=== PATIENT | female | born 1980 | race Two or more races ===

== ENCOUNTER 2022-12-19 04:39 | Inpatient (IN) | payer MEDICAID ==
[2022-12-19] VITALS (7 sets, daily range): BP systolic 96–161; BP diastolic 64–108; PULSE 70–82; RESP 14–24; TEMP 97.4–98.2
[~2022-12-19] VITALS: Ht 157.5 cm; Wt 59.9 kg
[2022-12-19 06:20] LABS: BASOPHILS % 0.4 % (0.0-2.0); EOSINOPHILS % 7.5 % (0.0-5.0); HEMATOCRIT. 41.5 % (36.0-48.0); LYMPHOCYTES % 32.8 % (20.0-50.0); MEAN CORPUSCULAR HEMOGLOBIN 28.2 pg (28.0-32.0); MEAN CORPUSCULAR HGB CONC 33.8 g/dL (31.0-37.0); MEAN CORPUSCULAR VOLUME 83.4 fL (81.0-99.0); MEAN PLATELET VOLUME 9.3 fl (7.4-10.4); MONOCYTES % 7.3 % (2.0-8.0); PLATELET 172 x1000/uL (130-400); RED BLOOD CELL COUNT 4.97 mill/uL (4.2-5.4); RED CELL DISTRIBUTION WIDTH 13.9 % (11.6-14.6); WHITE BLOOD COUNT 5.3 x1000/uL (4.5-11.0)
[2022-12-19 07:39] LABS: CHLORIDE 113 mEq/L (98-107); INDEX HEMOLYSI 1 (1-3); INDEX ICTERIC 1 (1-4); INDEX LIPEMIC 1 (1-3); SODIUM 139 mEq/L (136-145)
[2022-12-19 07:48] LABS: ALANINE AMINOTRANSFERASE 12 IU/L (13-61); ASPARTATE AMINOTRANSFERASE 11 IU/L (15-37); BILIRUBIN TOTAL 0.3 mg/dL (0.1-1.0); CALCIUM 8.4 mg/dL (8.5-10.1); CARBON DIOXIDE 17 mEq/L (21-32); CREATININE 1.9 mg/dL (0.6-1.3); GLUCOSE 248 mg/dL (70-105); PROTEIN TOTAL 6.9 g/dL (6.0-8.3); UREA NITROGEN BLOOD 30 mg/dL (7-21)
[2022-12-19 07:56] LABS: POTASSIUM 2.8 mEq/L (3.5-5.1)
[2022-12-19 08:00] LABS: TROPONIN I HIGH SENSITIVITY 147 ng/L (<54)
[2022-12-19] MEDS ORDERED: POTASSIUM CHLORIDE 20MEQ/PACKET PO ONE (08:45)
[2022-12-19] MEDS ORDERED: ENOXAPARIN 60MG/0.6ML SYR SUBCUT ONE (08:45)
[2022-12-19] MEDS ORDERED: GUAIFENESIN 200MG/10ML SUGAR FREE UDC PO PRN (10:45)
[2022-12-19] MEDS ORDERED: MAGNESIUM/ALUMINUM HYDROXIDE/SIMETHICONE 30ML UDC PO PRN (10:45)
[2022-12-19] MEDS ORDERED: DOCUSATE SODIUM 100MG CAPSULE PO PRN (10:45)
[2022-12-19] MEDS ORDERED: CLONIDINE 0.1MG TABLET PO PRN (10:45)
[2022-12-19] MEDS ORDERED: ONDANSETRON HCL 4MG/2ML INJ IV PRN (10:45)
[2022-12-19] MEDS ORDERED: ACETAMINOPHEN 325MG TABLET PO PRN ×2 (10:45)
[2022-12-19] MEDS ORDERED: IPRATROPIUM/ALBUTEROL 0.5-3(2.5)MG/3ML NEB HHN PRN (10:45)
[2022-12-19] MEDS ORDERED: HYDROCODONE/ACETAMINOPHEN 5/325MG TABLET PO PRN (10:45)
[2022-12-19] MEDS ORDERED: AMLODIPINE 5MG TABLET PO SCH (10:54)
[2022-12-19] MEDS ORDERED: NALOXONE HCL 0.4MG/ML VIAL IV PRN (11:15)
[2022-12-19] MEDS ORDERED: KCL 20MEQ/100ML PREMIX 100 ML IV NR (12:15)
[2022-12-19] MEDS ORDERED: ASPIRIN 81MG TABLET PO NR (12:45)
[2022-12-19] MEDS: AMLODIPINE 5MG TABLET PO SCH (13:30)
[2022-12-19] MEDS ORDERED: DEXTROSE 50% WATER 50ML SYRINGE IV PRN (14:45)
[2022-12-19 16:36] LABS: LACTIC ACID 3.3 mmol/L (0.4-2.0)
[2022-12-19 16:39] LABS: T4 FREE 1.11 ng/dL (0.76-1.46)
[2022-12-19 16:44] LABS: VITAMIN B12 SERUM 410 pg/mL (211-911)
[2022-12-19] MEDS ORDERED: BLOOD SUGAR DIAGNOSTIC STRIP TEST SCH (17:30)
[2022-12-19] MEDS ORDERED: INSULIN LISPRO 100 UNITS/ML SUBCUT SCH (18:00)
[2022-12-19] MEDS ORDERED: FAMOTIDINE 20MG TABLET PO SCH (21:00)
[2022-12-20] VITALS (9 sets, daily range): BP systolic 83–132; BP diastolic 55–87; PULSE 65–92; RESP 12–20; TEMP 98; O2SAT 98
[2022-12-20 06:13] LABS: CLARITY URINE CLEAR (CLEAR); COLOR URINE YELLOW (YELLOW); GLUCOSE URINE NEGATIVE (NEGATIVE); KETONES URINE NEGATIVE (NEGATIVE); LEUKOCYTE ESTERASE URINE TRACE (NEGATIVE); NITRITE URINE NEGATIVE (NEGATIVE); OCCULT BLOOD URINE NEGATIVE (NEGATIVE); PROTEIN URINE NEGATIVE (NEGATIVE); UROBILINOGEN URINE 0.2 E.U./dL (0.2-1.0)
[2022-12-20 06:16] LABS: BACTERIA URINE NONE SEEN; RBC URINE 0-2 /hpf (0-2); SQUAMOUS EPITHELIAL CELL URINE NONE SEEN /lpf (RARE/1+); WBC URINE 0-2 /hpf (0-2); YEAST URINE NONE SEEN
[2022-12-20 08:01] LABS: BASOPHILS % 0.1 % (0.0-2.0); EOSINOPHILS % 0.5 % (0.0-5.0); HEMATOCRIT. 39.2 % (36.0-48.0); HEMOGLOBIN. 13.4 g/dL (12.0-16.0); LYMPHOCYTES % 15.8 % (20.0-50.0); MEAN CORPUSCULAR HEMOGLOBIN 28.6 pg (28.0-32.0); MEAN CORPUSCULAR HGB CONC 34.3 g/dL (31.0-37.0); MEAN CORPUSCULAR VOLUME 83.4 fL (81.0-99.0); MEAN PLATELET VOLUME 9.4 fl (7.4-10.4); MONOCYTES % 4.9 % (2.0-8.0); NEUTROPHILS % 78.7 % (40.0-76.0); PLATELET 173 x1000/uL (130-400); RED BLOOD CELL COUNT 4.69 mill/uL (4.2-5.4); RED CELL DISTRIBUTION WIDTH 13.9 % (11.6-14.6); WHITE BLOOD COUNT 7.4 x1000/uL (4.5-11.0)
[2022-12-20] MEDS: AMLODIPINE 5MG TABLET PO SCH (08:38)
[2022-12-20 08:45] LABS: CHLORIDE 109 mEq/L (98-107); INDEX HEMOLYSI 1 (1-3); INDEX ICTERIC 1 (1-4); INDEX LIPEMIC 1 (1-3); POTASSIUM 4.2 mEq/L (3.5-5.1); SODIUM 138 mEq/L (136-145)
[2022-12-20 08:49] LABS: CARBON DIOXIDE 23 mEq/L (21-32); CREATININE 0.6 mg/dL (0.6-1.3); GLUCOSE 129 mg/dL (70-105); UREA NITROGEN BLOOD 11 mg/dL (7-21)
[2022-12-20] MEDS ORDERED: ENOXAPARIN 30MG/0.3ML SYR SUBCUT SCH (09:00)
[2022-12-20 09:27] LABS: UCG QC LOT# 620457; UCG SCREEN NEGATIVE
[2022-12-20 11:55] LABS: TROPONIN I HIGH SENSITIVITY 4 ng/L (<54)
[2022-12-20] MEDS ORDERED: AMLO5TAB88 PO (16:57)
[2022-12-20] MEDS ORDERED: FAMOTIDINE 20MG TABLET PO SCH (21:00)
[2022-12-21] MEDS ORDERED: ENOXAPARIN 40MG/0.4ML SYR SUBCUT SCH (09:00)
== END 2022-12-20 17:40 | disposition home or self-care (01) | DRG 199 ==
LOC: ER 04:39 → 5EST 10:04 → EDBEDREQ 10:14 → EDBEDREQTM 10:14 → EDBEDREQ 10:15
PROVIDERS: ADMIT Internal Medicine; ATTEND Internal Medicine
DX: I16.0 Hypertensive urgency (principal); I21.A1 Myocardial infarction type 2; E87.20 Acidosis, unspecified; E44.1 Mild protein-calorie malnutrition; E88.09 Other disorders of plasma-protein metabolism, not elsewhere classified; N17.9 Acute kidney failure, unspecified; E87.6 Hypokalemia; E11.65 Type 2 diabetes mellitus with hyperglycemia; E78.5 Hyperlipidemia, unspecified; Z68.24 Body mass index [BMI] 24.0-24.9, adult; Z79.899 Other long term (current) drug therapy
CPT/HCPCS: 36415; 71045; 76770; 80048; 80053; 80061; 81003; 81025; 82570; 82607; 82746; 82962; 83036; 83605; 83880; 84133; 84439; 84443; 84484; 85025; 93005; 93306; 93970; 97162; 99285; J1650; J2405; J3480